=== PATIENT | male | born 1995 | race Caucasian/White ===

== ENCOUNTER 2020-06-11 16:37 | Outpatient (CLI) | payer BC, SELFPAY ==
--- NOTE | 2020-06-11 17:30 | MR_ITS ---
WS: [id number] MRI LEFT KNEE NONCONTRAST TECHNIQUE: Axial PD, coronal PD fat sat, coronal PD, sagittal PD, and sagittal PD fat-sat images obta ined. CLINICAL INFORMATION: S83.8X2A - Sprain of other specified parts of left knee, initial encounter COMPARISON: None. FINDINGS: Distal quadriceps and patella tendons are intact. Hypertrophic patella. Normal ACL and PCL. Medial an d lateral meniscus are normal in appearance. No acute appearing meniscal tears. No acute bony contusion. Normal femoral condyles and tibial plateau. Hypertrophic patella. No subchon dral edema. Normal medial and lateral collateral ligaments. Normal popliteal fossa. Tiny popliteal cy st. MR/MR knee LT wo con* [id number] IMPRESSION: 1. Anterior and posterior cruciate ligaments are intact. 2. Normal medial and lateral meniscus. No acute acute appearing meniscal tears . 3. Medial and lateral collateral ligaments are intact. 4. Normal popliteal fossa. Tiny popliteal cyst. 5. Mild hypertrophic patella. No subchondral edema.
== END 2020-06-11 16:38 | disposition home or self-care (01) ==
LOC: RADSHAW 16:44
PROVIDERS: PCP Registered Nurse; Visit Provider Registered Nurse
DX: S83.8X2A Sprain of other specified parts of left knee, initial encounter (principal); M71.22 Synovial cyst of popliteal space [Baker], left knee
CPT/HCPCS: 73721

== ENCOUNTER → 2021-04-14 13:17 | Outpatient (BNVA) | payer BC, SELFPAY | PROVIDERS: PCP Registered Nurse; Visit Provider Family Medicine | DX: U07.1 COVID-19 (principal) | CPT/HCPCS: 87635 ==